=== PATIENT | female | born 1950 | race Hispanic/Latino ===

== ENCOUNTER 2018-10-21 09:31 | Emergency (ER) | payer OTHER ==
[~2018-10-21 09:31] MED LIST: ALEN70TA10 PO; ASPI-1181 PO; CLOP75TA14 PO; FLUT16H NS; LEVO88TA7 PO; METO-408 PO; SIMV40TA5 PO; multivitamin PO
[2018-10-21 10:01] LABS: APPEARANCE,URINE CLOUDY (CLEAR); BILIRUBIN,URINE NEGATIVE (NEGATIVE); COLOR,URINE YELLOW (YELLOW); GLUCOSE, URINE (UA) NEGATIVE (NEGATIVE); KETONES,URINE NEGATIVE (NEGATIVE); LEUKOCYTE ESTERASE ,URINE LARGE (NEGATIVE); NITRATE,URINE NEGATIVE (NEGATIVE); OCCULT BLOOD,URINE TRACE-INTACT (NEGATIVE); PROTEIN,URINE NEGATIVE (NEGATIVE); UROBILINOGEN,URINE 0.2 mg/dL (0.2-1.0)
[2018-10-21 10:06] LABS: BACTERIA,URINE Rare /HPF (None Seen); RBC,URINE 0-1 /HPF (0-1); SQUAMOUS EPITHELIAL CELL,UR Rare /HPF (0-2); WBC,URINE >100 /HPF (0-1)
[2018-10-21] MEDS ORDERED: MECLIZINE HCL 25 MG TABLET ONE (10:06)
[2018-10-21] MEDS ORDERED: SODIUM CHLORIDE 0.9% 1000ML 1,000 ML IV ONE (10:07)
[2018-10-21 10:23] LABS: BASOPHILS % (AUTO) 1.8 % (0.0-5.0); EOSINOPHILS % (AUTO) 2.4 % (0.0-8.0); HEMATOCRIT 38.6 % (36-48); LYMPHOCYTES % (AUTO) 22.7 % (21.0-51.0); MEAN CORPUSCULAR HEMOGLOBIN 24.2 pg (27.0-33.0); MEAN CORPUSCULAR HGB CONC 31.9 g/dL (32.0-36.0); MEAN CORPUSCULAR VOLUME 75.9 fL (79-99); MONOCYTES % (AUTO) 7.6 % (3.0-13.0); NEUTROPHILS % (AUTO) 65.5 % (40.0-77.0); PLATELET COUNT (AUTO) 256 K/uL (130-400); RED BLOOD CELL COUNT(AUTO) 5.09 MIL/uL (4.00-5.50); RED CELL DISTRIBUTION WIDTH 16.8 % (11.0-15.5); WHITE BLOOD COUNT (AUTO) 6.6 K/uL (4.8-10.8)
[2018-10-21 10:32] LABS: CREATININE 0.7 mg/dL (0.5-1.5); POTASSIUM 3.7 mmol/L (3.5-5.1)
[2018-10-21 11:09] LABS: B-TYPE NATRIURETIC PEPTIDE 47 pg/mL (0-100)
== END 2018-10-21 13:30 | disposition home or self-care (01) ==
LOC: EDH 09:31
DX: N39.0 Urinary tract infection, site not specified (principal); R42 Dizziness and giddiness; E78.5 Hyperlipidemia, unspecified; E07.9 Disorder of thyroid, unspecified; Z88.8 Allergy status to other drugs, medicaments and biological substances; Z90.710 Acquired absence of both cervix and uterus; Z90.49 Acquired absence of other specified parts of digestive tract
CPT/HCPCS: 36415; 70450; 80048; 81001; 83880; 84484; 85025; 93005; 96361; 96374; 99285; J7030

== ENCOUNTER 2023-12-05 13:07 | Emergency (ER) | payer OTHER ==
[~2023-12-05] VITALS: Ht 157.5 cm; Wt 61.2 kg
[~2023-12-05 13:07] MED LIST changes: -ALEN70TA10 PO; +ALEN70TA80 PO; -ASPI-1181 PO; +ASPI-1443 PO; +CLOP-31 PO; -CLOP75TA14 PO; +SIMV-46 PO; -SIMV40TA5 PO
[2023-12-05 13:37] LABS: BASOPHILS # (AUTO) 0.09 K/uL (0.00-0.20); BASOPHILS % (AUTO) 1.1 % (0.0-5.0); EOSINOPHILS # (AUTO) 0.38 K/uL (0.00-0.70); EOSINOPHILS % (AUTO) 4.8 % (0.0-8.0); HEMATOCRIT 36.1 % (36-48); IMMATURE GRANULOCYTE ABSOLUTE 0.02 K/uL (0-1); LYMPHOCYTES # (AUTO) 2.4 K/uL (1.0-4.8); LYMPHOCYTES % (AUTO) 29.9 % (21.0-51.0); MEAN CORPUSCULAR HEMOGLOBIN 24.8 pg (27.0-33.0); MEAN CORPUSCULAR HGB CONC 32.7 g/dL (32.0-36.0); MONOCYTES # (AUTO) 0.7 K/uL (0.1-1.0); MONOCYTES % (AUTO) 8.4 % (3.0-13.0); NEUTROPHILS # (AUTO) 4.4 K/uL (1.8-7.7); NEUTROPHILS % (AUTO) 55.5 % (40.0-77.0); PLATELET COUNT (AUTO) 281 K/uL (130-400); RED BLOOD CELL COUNT(AUTO) 4.75 MIL/uL (4.00-5.50); RED CELL DISTRIBUTION WIDTH 15.3 % (11.0-15.5)
[2023-12-05 13:48] LABS: CREATININE 0.5 mg/dL (0.5-1.0); POTASSIUM 3.5 mmol/L (3.5-5.1)
[2023-12-05 14:12] LABS: APPEARANCE,URINE CLEAR (CLEAR); BILIRUBIN,URINE NEGATIVE (NEGATIVE); GLUCOSE, URINE (UA) NEGATIVE (NEGATIVE); KETONES,URINE NEGATIVE (NEGATIVE); LEUKOCYTE ESTERASE ,URINE NEGATIVE Leu/uL (NEGATIVE); NITRATE,URINE NEGATIVE (NEGATIVE); OCCULT BLOOD,URINE NEGATIVE (NEGATIVE); PROTEIN,URINE NEGATIVE (NEGATIVE); UROBILINOGEN,URINE 0.2 mg/dL (0.2-1.0)
[2023-12-05 14:14] LABS: ADD UA MICROSCOPIC NO; COLOR,URINE LIGHT-YELLOW (YELLOW)
[2023-12-05 14:30] VITALS: BP 151/74; PULSE 71; RESP 15; O2SAT 99
== END 2023-12-05 14:52 | disposition home or self-care (01) ==
LOC: EDH 13:07
DX: R20.2 Paresthesia of skin (principal); E78.00 Pure hypercholesterolemia, unspecified; I10 Essential (primary) hypertension; Z90.710 Acquired absence of both cervix and uterus; Z90.49 Acquired absence of other specified parts of digestive tract; Z88.8 Allergy status to other drugs, medicaments and biological substances; Z79.899 Other long term (current) drug therapy; Z79.82 Long term (current) use of aspirin
CPT/HCPCS: 36415; 70450; 80048; 81003; 84484; 85025; 93005

== ENCOUNTER 2024-08-10 19:45 | Emergency (ER) | payer OTHER ==
[~2024-08-10] VITALS: Ht 157.5 cm; Wt 61.7 kg
--- NOTE | 2024-08-10 20:19 | NUR ---
TO CT AT THIS TIME
--- NOTE | 2024-08-10 20:39 | HMCIMG ---
CT HEAD/BRAIN W/O CONTRAST HISTORY: Status post fall COMPARISON: None TECHNIQUE: Multiple sequential axial images of the head were obtained from the base of the skull through vertex. Patient was not given contrast through intravenous route. FINDINGS: The ventricles and extraventricular CSF spaces are nondilated for patient's age. There is no midline shift, mass effect or herniation. No acute intracranial bleed is seen. Visualized portion of the paranasal sinuses are grossly within normal limits. IMPRESSION: 1. No acute intracranial bleed is seen. CT was performed with one or more following dose reduction techniques: automated exposure control, adjustment of the mA and kv according to patient's size, or use of a iterative reconstruction technique.
--- NOTE | 2024-08-10 20:49 | HMCIMG ---
CT MAXILLOFACIAL W/O CONTRAST HISTORY: Status post fall COMPARISON: None TECHNIQUE: Multiple sequential high-resolution axial images of the paranasal sinuses were obtained. Postprocessing sagittal and coronal reconstruction images were also obtained. Patient was not given contrast through intravenous route. FINDINGS: Nasal septum is deviated to was left. There is no evidence of mucoperiosteal thickening involving the paranasal sinuses. The infundibula are patent bilaterally. No acute displaced fracture is seen. There is no evidence of air-fluid level in the paranasal sinuses. Parapharyngeal fat planes are preserved bilaterally. There is borderline cervical adenopathy. Patient is edentulous in the upper teeth. Poor dentition is noted. IMPRESSION: 1. No acute displaced fracture is seen. Borderline cervical adenopathy. CT was performed with one or more following dose reduction techniques: automated exposure control, adjustment of the mA and kv according to patient's size, or use of a iterative reconstruction technique.
--- NOTE | 2024-08-10 21:43 | ERN ---
General Chief Complaint: Mechanical Fall Stated Complaint: C/O LAC TO LEFT EYELID, BUMP TO HEAD AFTER FALL Time Seen by MD: 19:47 Time Seen by Midlevel: 19:47 Source: patient History of Present Illness Initial Comments The patient is a 74-year-old female presenting to the emergency department for evaluation following a mechanical ground level fall. Patient states she tripped over her shoes and fell face forward. She does report hitting the left side of her forehead. Denies any loss of consciousness. Denies any blood thinners. On arrival she has mild pain to the left periorbital area but denies any other symptoms. Allergies: Coded Allergies: atorvastatin (Unverified Allergy, Unknown, 12/02/17) Home Meds Reported Medications Fluticasone Propionate (Fluticasone Propionate) 16 Gm [place].susp, 50 MCG NS DAILY 01/07/18 Alendronate Sodium (Alendronate Sodium) 70 Mg Tablet, 70 MG PO wkly, TAB 01/06/18 [multivitamin ] No Conflict Check, 1 TAB PO DAILY 01/06/18 Levothyroxine Sodium (Levothyroxine Sodium) 88 Mcg Tablet, 88 MCG PO DAILY, TAB 01/06/18 Simvastatin (Simvastatin) 40 Mg Tablet, 40 MG PO DAILY, TAB 01/06/18 Aspirin (Aspirin EC) 81 Mg Tablet.dr, 81 MG PO DAILY, TAB 01/06/18 Clopidogrel Bisulfate (Plavix) 75 Mg Tablet, 75 MG PO DAILY, TAB 01/06/18 Metoprolol Succinate (Metoprolol Succinate) 25 Mg Tab.er.24h, 0.5 TAB PO DAILY, TAB 01/06/18 Past Medical History Past Medical History: High Cholesterol, Hypothyroid Past Surgical History: Hysterectomy, Cholecystectomy, Other Surgical History Other: RT HIP SX ROS Dictation CONSTITUTIONAL: Negative except for HPI HEAD/FACE: Negative except for HPI EENT: Negative except for HPI RESPIRATORY: Negative except for HPI GASTROINTESTINAL/ABDOMINAL: Negative except for HPI GENITOURINARY: Negative except for HPI MUSCULOSKELETAL: Negative except for HPI INTEGUMENTARY: Negative except for HPI NEUROLOGICAL/PSYCH: Negative except for HPI HEMATOLOGIC/LYMPHATIC: Negative except for HPI All Systems Negative, Except as noted above. 13 point review of systems assessed and all negative except for above. Physical Exam Physical Exam Dictation Vital Signs reviewed General Appearance: Alert, oriented x 3, no acute distress, well developed, nourished. Head and Face: Abrasion/contusion to the left periorbital area Eyes: PERRL, pink conjunctivas, eyelid no trauma, anterior chamber with arcus senilis. Ears: Pinnas intact and no signs of trauma or erythema ear canals clear and no discharge TM no erythema Nose: No discharge, no bleeding. Oropharynx: Mouth normal, tongue pink, pharynx clear,no erythema, tonsils no exudates, no abscesses noted, mucous membrane moist Neck: Supple, non-tender, no thyromegaly, no masses, no JVD, no bruits Breast:Deferred Chest:No tenderness, no crepitus, no paradoxical movement, no retractions Lungs:Clear, well-ventilated, symmetric, no rales, no wheezing, no rhonchi, no stridor, good breath sounds bilaterally Heart: Regular rate, regular rhythm, no murmur, no gallops Vascular: no peripheral edema, Abdomen: Soft, positive bowel sounds, nondistended, no guarding, nontender, no rebound, no masses no hepatomegaly, no splenomegaly, no Joshua's sign, no hernias. Rectal: Deferred Genital: Deferred Neurological: Normal speech, motor function intact, sensory function intact Musculoskeletal: Neck nontender, full range of motion, back nontender, full range of motion, Extremities: nontender, full range of motion Skin: Color pink, dry, no turgor, no rash, no lacerations, no abrasions, no contusions. Lymphatic: Deferred MDM MDM: Differential diagnosis: Intracranial bleed, skull fracture, contusion There are no social concerns with this patient. Prescription drug management Prescriptions will include: Medical management and examination interpretation discussions were had by me with other qualified healthcare professionals as indicated for the patient's care. ED Course Orders Procedure Category Date Status Time Ct Head/Brain W/O CT 08/10/24 Resulted Contrast 19:53 Ct Maxillofacial W/O CT 08/10/24 Resulted Contrast 19:53 Vital Signs Date Time Temp Pulse Resp B/P (MAP) Pulse Ox O2 Delivery O2 Flow Rate FiO2 08/10/24 19:47 98.1 70 20 147/68 98 Room Air [place] [id number] [place] [address] [id number] IMAGING REPORT Signed PATIENT: PETE WALLACE MR#: [id number] : 1950 SEX: F AGE: 74 LOCATION: [facility] ORDER 57 STATUS: [facility] REPORT#: [id number] SERVICE 52 REASON: fall ORDERING PHYSICIAN: CIRA FOY PROCEDURE: MAXFACI WO - CT MAXILLOFACIAL W/O CONTRAST CT MAXILLOFACIAL W/O CONTRAST HISTORY: Status post fall COMPARISON: None TECHNIQUE: Multiple sequential high-resolution axial images of the paranasal sinuses were obtained. Postprocessing sagittal and coronal reconstruction images were also obtained. Patient was not given contrast through intravenous route. FINDINGS: Nasal septum is deviated to was left. There is no evidence of mucoperiosteal thickening involving the paranasal sinuses. The infundibula are patent bilaterally. No acute displaced fracture is seen. There is no evidence of air-fluid level in the paranasal sinuses. Parapharyngeal fat planes are preserved bilaterally. There is borderline cervical adenopathy. Patient is edentulous in the upper teeth. Poor dentition is noted. IMPRESSION: 1. No acute displaced fracture is seen. Borderline cervical adenopathy. CT was performed with one or more following dose reduction techniques: automated exposure control, adjustment of the mA and kv according to patient's size, or use of a iterative reconstruction technique. DICTATED BY: SYLVIA CAIN MD DATE: 08/10/242036 ELECTRONICALLY SIGNED BY: SYLVIA CAIN MD DATE: 08/10/242048 [place] [address] IMAGING REPORT Signed PATIENT: PETE WALLACE MR#: [id number] : 1950 SEX: F AGE: 74 LOCATION: [facility] ORDER 57 STATUS: REG ER REPORT#: [id number] SERVICE 52 REASON: fall ORDERING PHYSICIAN: CIRA FOY PROCEDURE: HEAD WO - CT HEAD/BRAIN W/O CONTRAST CT HEAD/BRAIN W/O CONTRAST HISTORY: Status post fall COMPARISON: None TECHNIQUE: Multiple sequential axial images of the head were obtained from the base of the skull through vertex. Patient was not given contrast through intravenous route. FINDINGS: The ventricles and extraventricular CSF spaces are nondilated for patient's age. There is no midline shift, mass effect or herniation. No acute intracranial bleed is seen. Visualized portion of the paranasal sinuses are grossly within normal limits. IMPRESSION: 1. No acute intracranial bleed is seen. CT was performed with one or more following dose reduction techniques: automated exposure control, adjustment of the mA and kv according to patient's size, or use of a iterative reconstruction technique. DICTATED BY: SYLVIA CAIN MD DATE: 08/10/242031 ELECTRONICALLY SIGNED BY: SYLVIA CAIN MD DATE: 08/10/242038 DX & DISP Disposition: Discharge Departure Impression: Primary Impression: Fall Additional Impression: Forehead contusion Condition: Stable Additional Instructions: Your CT scan of the head and maxillofacial do not show any acute fracture. You may take Tylenol and Motrin as needed for pain. No need for any emergent intervention at this time. Follow up with your primary care doctor in 2-3 days for repeat evaluation. Referrals: SHE MAY M.D. (PCP) Time of Disposition: 21:42 I have reviewed the case, and I agree with, Diagnosis and Plan I performed the substantive portion of the visit. I have reviewed and personally made and approve the management plan that is documented in the note by myself or the JACINTO. I acknowledge for responsibility for the patient's management plan. CIRA FOY Aug 10, 2024 21:43
[2024-08-10 21:46] VITALS: BP 128/75; PULSE 70; RESP 16; TEMP 97.9; O2SAT 96
== END 2024-08-10 21:49 | disposition home or self-care (01) ==
LOC: EDH 19:45
DX: S00.83XA Contusion of other part of head, initial encounter (principal); E03.9 Hypothyroidism, unspecified; E78.00 Pure hypercholesterolemia, unspecified; Z79.02 Long term (current) use of antithrombotics/antiplatelets; Z79.82 Long term (current) use of aspirin; Z79.890 Hormone replacement therapy; Z79.899 Other long term (current) drug therapy; Z90.49 Acquired absence of other specified parts of digestive tract; Z90.710 Acquired absence of both cervix and uterus; W01.0XXA Fall on same level from slipping, tripping and stumbling without subsequent striking against object, initial encounter; Y93.89 Activity, other specified; Y92.89 Other specified places as the place of occurrence of the external cause; Y99.8 Other external cause status
CPT/HCPCS: 70450; 70486; 99284